=== PATIENT | female | born 1935 | race Caucasian/White ===

== ENCOUNTER 2020-08-13 20:01 | Emergency (ER) | payer MEDICARE ==
[2020-08-13] MEDS ORDERED: Sodium Chloride 0.9% 1,000 ML IV SCH (20:30)
[2020-08-13] MEDS ORDERED: LORazepam 2 MG/ML SDV IVPUSH ONE (20:43)
--- NOTE | 2020-08-13 21:11 | EDM.PDOC ---
ED HPI GENERAL MEDICAL PROBLEM - General Chief Complaint: Chest Pain Stated Complaint: CHEST PAINS Time Seen by Provider: 08/13/20 20:45 Source of Information: Reports: Patient History Limitations: Reports: No Limitations - History of Present Illness INITIAL COMMENTS - FREE TEXT/NARRATIVE: pt had cardiac stent placed last , had to be done through the left arm, since the procedure she has been having chest wall pain , and it continued till today , has been taking tylenol but she states today it was not effective and so she called 911 describes pain as a tight bra around her chest that she feels she has to take off , Her gave her nitroglycerin but that did not relieve the pain EMS was called , she declined to go to ER with EMS as they told her she did not have any life threatening issue . Was brought in by family pt did still complain of chest wall pain , states it is localized to her bra line Has mild sob as she continues to talk Pt admits to a prior similar episode and she had to be given Ativan Onset: Today Duration: Chronic, Getting Worse Location: Reports: Chest Quality: Reports: Pressure Severity: Mild Improves with: Reports: Rest Worsens with: Reports: Movement Context: Reports: Other (post procedure) Associated Symptoms: Reports: No Other Symptoms Treatments BREASTER: Reports: Acetaminophen, Nitroglycerin - Related Data Allergies Allergy/AdvReac Type Severity Reaction Status Date / Time No Known Allergies Allergy Verified 04/05/20 15:04 ED ROS GENERAL - Review of Systems Review Of Systems: See Below Constitutional: Reports: Malaise, Weakness, Fatigue HEENT: Reports: No Symptoms Respiratory: Denies: Shortness of Breath, Pleuritic Chest Pain, Cough, Sputum Cardiovascular: Reports: Chest Pain. Denies: Dyspnea on Exertion, Edema, Palpitations Endocrine: Reports: Fatigue GI/Abdominal: Reports: No Symptoms Musculoskeletal: Reports: No Symptoms Skin: Reports: Bruising (noted on left upper arm) Neurological: Reports: No Symptoms Psychiatric: Reports: Anxiety ED EXAM, GENERAL - Physical Exam Exam: See Below Exam Limited By: No Limitations General Appearance: Alert, WD/WN, No Apparent Distress Eye Exam: Bilateral Eye: EOMI Ears: Normal External Exam Throat/Mouth: Normal Oropharynx Head: Atraumatic, Normocephalic Neck: Supple, Non-Tender Respiratory/Chest: No Respiratory Distress, Lungs Clear, Normal Breath Sounds Cardiovascular: Normal Peripheral Pulses, Regular Rate, Rhythm GI/Abdominal: Soft, Non-Tender Back Exam: Normal Inspection, Full Range of Motion Neurological: Alert, Oriented, CN II-XII Intact Psychiatric: Anxious Skin Exam: Warm, Dry, Intact Lymphatic: No Adenopathy #1 Interpretation EKG Date: 08/13/20 Time: 20:10 Rhythm: NSR P-Wave: Present QRS: Normal Comparison: NA - No Prior EKG Course - Vital Signs Last Recorded V/S: Last Vital Signs Temp 36.8 C 08/13/20 20:05 Pulse 58 L 08/13/20 20:05 Resp BP Pulse Ox - Orders/Labs/Meds Orders: Active Orders 24 hr Category Date Time Status EKG Documentation Completion [RC] ASDIRECTED Care 08/13/20 20:20 Active Chest 1V Frontal [CR] Stat Exams 08/13/20 20:21 Taken Sodium Chloride 0.9% [Normal Saline] 1,000 ml Med 08/13/20 20:30 Active IV ASDIRECTED EKG 12 Lead [EK] Routine Ther 08/13/20 20:20 Ordered Medication Orders Sodium Chloride (Normal Saline) 1,000 mls @ 100 mls/hr IV ASDIRECTED ALYSSIA Last Admin: 08/13/20 21:00 Dose: 100 mls/hr Documented by: DEVANG Labs: Laboratory Tests 08/13/20 08/13/20 08/13/20 Range/Units 20:20 20:20 20:20 WBC 10.8 H (3.0-10.3) x10-3/uL RBC 3.24 L (3.60-5.20) x10(6)uL Hgb 10.2 L (11.4-15.5) g/dL Hct 31.1 L (34.2-48.2) % MCV 96.1 (76.7-100.5) fL MCH 31.6 (23.9-33.9) pg MCHC 32.9 (31.9-34.8) g/dL RDW 16.8 H (12.3-16.5) % Plt Count 204 (151-488) x10(3)uL MPV 8.4 (7.1-12.4) fL Neut % (Auto) 72.1 (30.8-76.2) % Lymph % (Auto) 11.7 L (18.4-52.1) % Quay % (Auto) 13.4 (4.4-15.7) % Eos % (Auto) 2.4 (0.6-8.1) % Baso % (Auto) 0.4 (0.2-1.5) % Neut # (Auto) 7.8 H (1.5-6.3) x10-3/uL Lymph # (Auto) 1.3 (1.0-4.4) x10-3/uL Quay # (Auto) 1.4 H (0.3-1.0) x10-3/uL Eos # (Auto) 0.3 (0.0-0.8) x10-3/uL Baso # (Auto) 0.0 (0.0-0.1) x10-3/uL Sodium 143 (135-145) mmol/L Potassium 4.5 (3.5-5.3) mmol/L Chloride 104 (100-110) mmol/L Carbon Dioxide 30 (21-32) mmol/L BUN 20 H (7-18) mg/dL Creatinine 0.8 (0.55-1.02) mg/dL Est Cr Clr Drug Dosing TNP Estimated GFR (MDRD) > 60 (>60) BUN/Creatinine Ratio 25.0 H (9-20) Glucose 133 H (80-116) mg/dL Calcium 8.9 (8.6-10.2) mg/dL Total Bilirubin 0.7 (0.1-1.3) mg/dL AST 25 (5-25) IU/L ALT 35 (12-36) U/L Alkaline Phosphatase 105 (56-112) IU/L Troponin I 40.6 (4.0-60.3) pg/mL C-Reactive Protein (0.5-0.9) mg/dL NT-Pro-B Natriuret Pep 1222 H* (<=450) pg/mL Total Protein 6.2 (6.0-8.0) g/dL Albumin 2.6 L (3.2-4.6) g/dL Globulin 3.6 g/dL Albumin/Globulin Ratio 0.7 07/04/21 Range/Units 20:20 WBC (3.0-10.3) x10-3/uL RBC (3.60-5.20) x10(6)uL Hgb (11.4-15.5) g/dL Hct (34.2-48.2) % MCV (76.7-100.5) fL MCH (23.9-33.9) pg MCHC (31.9-34.8) g/dL RDW (12.3-16.5) % Plt Count (151-488) x10(3)uL MPV (7.1-12.4) fL Neut % (Auto) (30.8-76.2) % Lymph % (Auto) (18.4-52.1) % Quay % (Auto) (4.4-15.7) % Eos % (Auto) (0.6-8.1) % Baso % (Auto) (0.2-1.5) % Neut # (Auto) (1.5-6.3) x10-3/uL Lymph # (Auto) (1.0-4.4) x10-3/uL Quay # (Auto) (0.3-1.0) x10-3/uL Eos # (Auto) (0.0-0.8) x10-3/uL Baso # (Auto) (0.0-0.1) x10-3/uL Sodium (135-145) mmol/L Potassium (3.5-5.3) mmol/L Chloride (100-110) mmol/L Carbon Dioxide (21-32) mmol/L BUN (7-18) mg/dL Creatinine (0.55-1.02) mg/dL Est Cr Clr Drug Dosing Estimated GFR (MDRD) (>60) BUN/Creatinine Ratio (9-20) Glucose (80-116) mg/dL Calcium (8.6-10.2) mg/dL Total Bilirubin (0.1-1.3) mg/dL AST (5-25) IU/L ALT (12-36) U/L Alkaline Phosphatase (56-112) IU/L Troponin I (4.0-60.3) pg/mL C-Reactive Protein 14.9 H* (0.5-0.9) mg/dL NT-Pro-B Natriuret Pep (<=450) pg/mL Total Protein (6.0-8.0) g/dL Albumin (3.2-4.6) g/dL Globulin g/dL Albumin/Globulin Ratio Meds: Medications Generic Name Dose Route Start Last Admin Trade Name Abdoul PRN Reason Stop Dose Admin Sodium Chloride 1,000 mls @ 100 mls/hr 08/13/20 20:30 08/13/20 21:00 Normal Saline IV 100 mls/hr ASDIRECTED ALYSSIA Administration Discontinued Medications Generic Name Dose Route Start Last Admin Trade Name Abdoul PRN Reason Stop Dose Admin Acetaminophen 1,000 mg 08/13/20 21:21 08/13/20 21:28 Acetaminophen 500 Mg Tab PO 08/13/20 21:22 1,000 mg ONETIME ONE Administration Lorazepam 0.5 mg 08/13/20 20:43 08/13/20 21:00 Lorazepam 2 Mg/Ml Sdv IVPUSH 08/13/20 20:44 0.5 mg ONETIME ONE Administration - Re-Assessments/Exams Free Text/Narrative Re-Assessment/Exam: 08/13/20 22:11 had labs drawn , EKG and chest Xray done , IVF started , she still complained of nickolas pain ,, was difficult to assess the pain she did not seem sob or have palpitations As she did mention she had similar episode in the past , and had to use Ativan , we decided to try that since she was not having any changes on her EKG pt did feel better after the Ativan Departure - Departure Time of Disposition: 10:15 Disposition: Home, Self-Care 01 Condition: Fair Clinical Impression: Atypical chest pain, Anxiety disorder, Status post coronary artery stent placement Instructions: Nonspecific Chest Pain, Adult, [id number] Referrals: Tobin Hearn PA [Primary Care Provider] - Forms: ED Department Discharge Additional Instructions: 1) Ok to take Nitroglycerin with repeat chest 2) Continue with Ativan as needed 3) Keep appointment to see your PCP Sepsis Event Note (ED) - Focused Exam Vital Signs: Vital Signs Temp Pulse 08/13/20 20:05 36.8 C 58 L - My Orders Last 24 Hours: My Active Orders 08/13/20 20:20 EKG Documentation Completion [RC] ASDIRECTED EKG 12 Lead [EK] Routine 08/13/20 20:21 Chest 1V Frontal [CR] Stat 08/13/20 20:30 Sodium Chloride 0.9% [Normal Saline] 1,000 ml IV ASDIRECTED - Assessment/Plan Last 24 Hours: My Active Orders 08/13/20 20:20 EKG Documentation Completion [RC] ASDIRECTED EKG 12 Lead [EK] Routine 08/13/20 20:21 Chest 1V Frontal [CR] Stat 08/13/20 20:30 Sodium Chloride 0.9% [Normal Saline] 1,000 ml IV ASDIRECTED
[2020-08-13] MEDS ORDERED: Acetaminophen 500 MG Tab PO ONE (21:21)
== END 2020-08-13 22:35 | disposition home or self-care (01) ==
LOC: FB.ED 20:01
DX: R07.89 Other chest pain (principal); F41.9 Anxiety disorder, unspecified; Z95.5 Presence of coronary angioplasty implant and graft
CPT/HCPCS: 36415; 71045; 80053; 83880; 84484; 85025; 86140; 93005; 96374; 99284; 99285; A9270; J2060; J7030